=== PATIENT | female | born 1955 | race Caucasian/White ===

== ENCOUNTER 2022-05-09 08:40 | Day surgery (SDC) | payer MEDICARE, OTHER, SELFPAY ==
[2022-05-09 09:21] VITALS: BP 135/98; PULSE 65; RESP 16; TEMP 36.2; O2SAT 96; BMI 35.6
[2022-05-09] MEDS: Lactated Ringers 1,000 ML 15 ML IV (09:25)
--- NOTE | 2022-05-09 10:22 | HP.PCM_ITS ---
History and Physical Date of Admission: 05/09/22 Intake Vital Signs ? 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 Orlando Rogers MD) Depression Surgical History?(Updated 04/05/22 @ 08:24 by Melodie Colon) S/P hysterectomy S/P shoulder surgery S/P tonsillectomy Family History?(Updated 04/05/22 @ 08:27 by Melodie Colon) Mother Diabetes Hypertension Heart diseaseFather Diabetes Heart disease HypertensionSister Diabetes Heart diseaseBrother Hypertension Heart disease Social History?(Updated 04/05/22 @ 08:27 by Melodie Colon) Smoking Status:? Never smoker alcohol intake:? never substance use type:? does not use HPI HPI HPI: 67-year-old for male here for positive Cologuard.? She has never had a colonoscopy.? She denies any abdominal pain or blood in stool or family history of colon cancer. ROS General General: No weight change, appetite, fatigue, colon cancer, breast cancer or weakness HEENT HEENT: Yes difficulty swallowing; No eye injury, eye surgery, swollen glands or hoarseness Endo Endocrine: No thyroid disease, diabetes mellitus, thyroid cancer, Hair loss, he at intolerance or cold intolerance Skin Skin: No rash or changing moles Breast Breast: No left breast lump, right breast lump, nipple discharge, breast pain, abnormal mammogram, abnormal US or breast enlargement Musc Musculoskeletal: No back problems, arthritis, rheumatoid arthritis, gout or joint pain Cardio Cardiovascular: Yes high blood pressure; No murmur, pacemaker, heart disease, atrial fibrillation, heart attack, heart stent, palpitations, shortness of breat with exertion or chest pain Psych Psychiatric: Yes depression and anxiety; No hearing voices Resp Respiratory: No shortness of breath, No sleep apnea, No cough, No COPD, No asthma, No emphysema and No wheezing Gastro Gastrointestinal: No abdominal pain, No nausea or vomiting, No diarrhea, No constipation, No blood in stool, No acid reflux, No hemorrhoids, No ulcers, No gallbladder problem and No black,tarry stools Additional Details: positive cologuard Ward Hematologic: No blood thinners, No blood disorders, No bleeding, No anemia and No blood clots Neuro Neurologic: No system reviewed and no additional complaints, except as documented, No as per HPI, No abnormal gait, No abnormal hearing, No abnormal movements, No abnormal speech, No behavioral changes, No burning sensations, No confusion, No convulsions, No disequilibrium, No dizziness, No localized weakness, No frequent falls, No headache(s), No lack of coordination, No loss of vision, No memory loss, No numbness, No other visual disturbances, No radicular pain, No restless legs, No sensory deficit, No syncope, No tingling, No tremor(s ), No weakness and No other Exam Const General: cooperative Orientation: alert and oriented x3 HENMT Head: normal to inspection Neck Neck: normal visual inspection and full ROM Chest Chest palpation & inspection: normal inspection of the chest Resp Effort & Inspection: normal respiratory effort Auscultation: clear to auscultation bilaterally Cardio Rate: regular rate Rhythm: regular rhythm GI Inspection: non-distended Palpation: soft and nontender Skin General: no rashes or lesions noted Neuro General: patient alert and patient oriented x3 Extrem General: full ROM Psych Appearance: grossly normal Mental Status: mental status grossly normal Assessment and Plan Assessment and Plan (1) Positive colorectal cancer screening using Cologuard test: ?Status:?Acute ?Plan: Patient has a positive Cologuard test and requires diagnostic colonoscopy.? I explained endoscopy in detail to the patient.? I explained the risks including but not limited to stroke or heart attack with anesthesia, perforation of the GI tract, bleeding, infection.? I explained that any of these could necessitate further emergency surgery.? The patient understands and all questions were answered sufficiently.? The patient wishes to proceed with procedure. Orlando Rogers MD Pager: [facility] [address] [place] [address] [address] [place] [address] Office: I have re-examined the patient. There are no clinical changes since date of exam.
--- NOTE | 2022-05-09 10:53 | OP.CCLET_ITS ---
05/09/2022 July Mejia Re : Colonoscopy procedure for Dayana Mejia This procedure was performed on Monday, May 09, 2022. My impressions and recommendations are as follows: Impressions : - The entire examined colon is normal on direct and retroflexion views. - No specimens collected. Recommendations : - Discharge patient to home. - Resume previous diet. - Continue present medications. - Repeat colonoscopy in 10 years for screening purposes. My findings are described in the full procedure note, which is enclosed. If I can be of further assistance, please feel free to contact me at Doctor phone number(s): , Work: . Sincerely, Orlando Rogers MD 05/09/2022 10:52:24 AM This report has been signed electronically.
--- NOTE | 2022-05-09 10:53 | OP.COLON_ITS ---
Patient Name: Dayana Marin Procedure Date: 05/09/2022 10:33 AM Date of : 1955 Age: 67 Procedure: Colonoscopy Indications: Positive Cologuard test Providers: Orlando Rogers MD Medicines: Monitored Anesthesia Care Patient Profile: This is a 67 year old female. Refer to note in patient chart for documentation of history and physical. Last Colonoscopy: none. The patient's first colonoscopy is today. Complications: No immediate complications. Procedure: Pre-Anesthesia Assessment: - Prior to the procedure, a History and Physical was performed, and patient medications and allergies were reviewed. The patient's tolerance of previous anesthesia was also reviewed. The risks and benefits of the procedure and the sedation options and risks were discussed with the patient. All questions were answered, and informed consent was obtained. Prior Anticoagulants: The patient has taken no previous anticoagulant or antiplatelet agents. After reviewing the risks and benefits, the patient was deemed in satisfactory condition to undergo the procedure. After I obtained informed consent, the scope was passed under direct vision. Throughout the procedure, the patient's blood pressure, pulse, and oxygen saturations were monitored continuously. The pediatric colonoscope was introduced through the anus and advanced to the cecum, identified by appendiceal orifice and ileocecal valve. The colonoscopy was performed without difficulty. The patient tolerated the procedure well. The quality of the bowel preparation was good. Scope In: 10:38:30 AM Scope Withdrawal Time 0 hours 6 minutes 11 seconds Scope Out: 10:51:12 AM Total Procedure Duration Time 0 hours 12 minutes 42 seconds Findings: The entire examined colon appeared normal on direct and retroflexion views. Impression: - The entire examined colon is normal on direct and retroflexion views. - No specimens collected. Recommendation: - Discharge patient to home. - Resume previous diet. - Continue present medications. - Repeat colonoscopy in 10 years for screening purposes. Procedure Code(s): --- Professional --- 81068, Colonoscopy, flexible; diagnostic, including collection of specimen(s) by brushing or washing, when performed (separate procedure) Diagnosis Code(s): --- Professional --- R19.5, Other fecal abnormalities CPT copyright 2017 [employer]. All rights reserved. The codes documented in this report are preliminary and upon summer babysitter review may be revised to meet current compliance requirements. Orlando Rogers MD 05/09/2022 10:52:24 AM This report has been signed electronically. Number of Addenda: 0 Note Initiated On: 05/09/2022 10:33 AM
[2022-05-09 10:55] VITALS: BP 113/76; BP 135/98; PULSE 60; RESP 18; TEMP 36.5; O2SAT 95
[2022-05-09 11:00] VITALS: BP 106/66; BP 135/98; PULSE 54; RESP 18; O2SAT 94
[2022-05-09 11:05] VITALS: BP 125/76; BP 135/98; PULSE 61; RESP 18; O2SAT 94
[2022-05-09 11:10] VITALS: BP 131/73; BP 135/98; PULSE 60; RESP 18; TEMP 36.6; O2SAT 94
[2022-05-09 11:25] VITALS: BP 135/98
== END 2022-05-09 12:04 | disposition home or self-care (01) ==
LOC: EN 08:43 → AC 08:43
PROVIDERS: PCP Physician Assistant; Referring Provider Physician Assistant; Visit Provider Surgery
PROC: 0DJD8ZZ Inspection of Lower Intestinal Tract, Via Natural or Artificial Opening Endoscopic (ICD-10-PCS; CPT 45378; principal; 2022-05-09 09:55)
DX: R19.5 Other fecal abnormalities (principal); F32.A Depression, unspecified
CPT/HCPCS: 45378; J7120; J2405